=== PATIENT | female | born 1980 | race Caucasian/White ===

== ENCOUNTER 2018-01-28 13:37 | Outpatient (CLI) | payer OTHER ==
--- NOTE | 2018-01-28 16:55 | Mammography Report ---
Reason: NEW ONSET LEFT NIPPLE ITCHING Procedure Date: 01/28/2018 Accession Number: [id number] / [id number] Procedure: [place] - Diagnostic Dig Bilat CPT Code: FULL RESULT: EXAM: Diagnostic Dig Bilat, Breast Unilateral Limited DATE: 01/28/2018 3:54 PM CLINICAL HISTORY: 37-year-old female with history of late childbearing presents with several months of inversion of the left breast nipple and itching. TECHNIQUE: Bilateral CC and MLO views as well as a spot view of the left breast in MLO and CC projection were obtained. Focused grayscale ultrasound of the left breast was also performed. COMPARISON: None FINDINGS: The breasts demonstrate scattered fibroglandular densities bilaterally. No suspicious masses, calcifications or architectural distortion is identified in the right breast. Within the left breast, at the 3:00 position, 3.5 cm deep to the nipple is a focal architectural distortion. This requires biopsy. Focused ultrasound does not demonstrate a sonographic correlate and shows only normal breast tissue, biopsy to be performed stereotactically. IMPRESSION: Suspicious abnormality. RECOMMENDATION: Biopsy BIRADS CATEGORY 4 STANDARD QUALIFYING STATEMENTS: 1. This examination was not reviewed with the aid of Computer-Aided Detection (CAD). 2. A negative or benign imaging report should not delay biopsy if clinically suspicious findings are present. Consider surgical consultation if warrented. More than 5% of cancers are not identified by imaging. 3. Dense breasts may obscure an underlying neoplasm.
== END 2018-01-28 13:38 | disposition home or self-care (01) ==
LOC: DI 13:37
PROVIDERS: ATTEND Obstetrics & Gynecology
DX: R92.8 Other abnormal and inconclusive findings on diagnostic imaging of breast (principal); N64.59 Other signs and symptoms in breast
CPT/HCPCS: 76642; 77066

== ENCOUNTER 2018-03-19 10:40 | Outpatient (CLI) | payer OTHER ==
--- NOTE | 2018-03-19 15:37 | Mammography Report ---
Reason: PRE BIOPSY FILMS Procedure Date: 03/19/2018 Accession Number: [id number] / [id number] Procedure: [place] - Diag Special Views Dig LT CPT Code: FULL RESULT: EXAM: Diag Special Views Dig LT DATE: 03/19/2018 12:22 PM CLINICAL HISTORY: 45 month history of intermittent left-sided nipple retraction of undetermined etiology. Possible area of distortion in the lateral left breast referred for stereotactic breast biopsy. TECHNIQUE: Prior to attempted biopsy, additional diagnostic images of the left breast obtained with left CC and left MLO 2-D and 3-D mammography. Spot magnified views of the lateral left breast CC, 90 degree lateral. COMPARISON: 01/28/2018 FINDINGS: The breasts demonstrate scattered fibroglandular densities bilaterally. Left breast: There is mild central nipple retraction again noted. There are no suspicious masses, calcifications or areas of distortion. Previous finding of concern in the lateral left breast recommended for stereotactic breast biopsy is not apparent. No target for biopsy. IMPRESSION: Benign findings RECOMMENDATION: Clinical follow-up with primary care provider for symptoms of central nipple retraction without imaging correlate. Patient was advised to return prior to any recommended screening interval for increase in current symptoms or new symptoms/concerns. Otherwise follow-up bilateral mammogram in 1 year is recommended.. BI-RADS CATEGORY 2: Benign findings STANDARD QUALIFYING STATEMENTS: 1. This examination was not reviewed with the aid of Computer-Aided Detection (CAD). 2. A negative or benign imaging report should not preclude biopsy if clinically suspicious findings are present. 3. Dense breasts may obscure an underlying neoplasm. 4. This examination was reviewed with the aid of 3D breast imaging (tomosynthesis).
== END 2018-03-19 10:41 | disposition home or self-care (01) ==
LOC: DI 10:40
PROVIDERS: ATTEND Obstetrics & Gynecology
DX: N64.53 Retraction of nipple (principal); N64.4 Mastodynia

== ENCOUNTER 2019-09-22 14:18 | Emergency (ER) | payer OTHER ==
--- NOTE | 2019-09-22 15:20 | ED Physician Documentation ---
PD HPI DYSPNEA - Stated complaint Stated Complaint: TIGHTNESS IN CHEST, SOA - Chief complaint Chief Complaint: Resp - History obtained from History obtained from: Patient (For the last week and a half or so she has had paroxysm of wheezing and dry cough. Generally when she is outside. She has a history of exercise-induced asthma but this has not bothered her in a long time. She has some tight chest when it happens. No pedal edema or calf pain. No control. No recent travel. No history of DVT or PE. No hemoptysis.) Review of Systems Constitutional: denies: Fever, Chills Cardiac: denies: Palpitations, Pedal edema, Calf pain Respiratory: reports: Wheezing. denies: Hemoptysis PD PAST MEDICAL HISTORY - Present Medications Home Medications: Ambulatory Orders Medication Instructions Recorded Confirmed Ibuprofen [Motrin] 600 mg PO Q6H #30 tablet 11/28/15 Albuterol Sulf [Ventolin Hfa 1 - 2 puffs INH Q4HR PRN #1 inhaler 09/22/19 Inhaler] - Allergies Allergies/Adverse Reactions: Allergies Allergy/AdvReac Type Severity Reaction Status Date / Time hydrocodone Allergy Severe Itching Verified 09/22/19 14:26 - Social History Smoking Status: Never smoker PD ED PE NORMAL - Vitals Vital signs reviewed: Yes - General General: Alert and oriented X 3, No acute distress - HEENT HEENT: PERRL, EOMI - Neck Neck: Supple, no meningeal sign, No bony TTP - Cardiac Cardiac: RRR, No murmur - Respiratory Respiratory: No respiratory distress, Other (Mild expiratory wheezes, nonlabored, excellent air motion) - Abdomen Abdomen: Non tender - Neuro Neuro: Alert and oriented X 3, Normal speech - Psych Psych: Normal mood, Normal affect Results - Vitals Vitals: Vital Signs - 24 hr 09/22/19 14:26 Temperature 36.5 C Heart Rate 88 Respiratory 14 Rate Blood Pressure 140/72 H O2 Saturation 100 Oxygen O2 Source Room air - EKG (time done) 1422 Rate: Other (Twelve-lead EKG done at 1422 discloses normal sinus rhythm with a rate of 88, no ST T changes. No evidence of right heart strain.) PD MEDICAL DECISION MAKING - ED course ED course: This is a young woman with what appears to be allergic asthma, her chest x-ray and EKG are normal. She is prescribed an albuterol inhaler. I considered pulmonary embolism in this patient. Clinically the pretest probability of pulmonary embolism is less than 15%. I applied to the PERC rules as follows: The patient's age is under 50, heart rate less than 100, oxygen saturation greater than 94%, the patient does not have a history of DVT or PE. Patient has no recent trauma or surgery. The patient has no hemoptysis. The patient is not on exogenous estrogens. The patient does not have clinical signs suggesting DVT. As such the patient ruled out for pulmonary embolism by PERC criteria. Departure - Departure Disposition: Home, Self Care Clinical Impression: Allergic asthma Qualifiers: Asthma severity: mild Asthma persistence: intermittent Asthma complication type: uncomplicated Qualified Code(s): J45.20 - Mild intermittent asthma, uncomplicated Condition: Good Record reviewed to determine appropriate education?: Yes Instructions: Asthma Dc Prescriptions: Albuterol Sulf [Ventolin Hfa Inhaler] 1 - 2 puffs INH Q4HR PRN #1 inhaler PRN Reason: Shortness Of Air/Wheezing Comments: Call your doctor to arrange a follow-up appointment, make the next available appointment. In the interim, return anytime if worse or if new symptoms develop.
--- NOTE | 2019-09-22 15:23 | XRAY Report ---
Reason: SOA Procedure Date: 09/22/2019 Accession Number: [id number] / [id number] Procedure: XR - Chest 2 View X-Ray CPT Code: 86873 Final Report FULL RESULT: EXAM: CHEST RADIOGRAPHY EXAM DATE: 09/22/2019 02:53 PM. CLINICAL HISTORY: Shortness of breath. COMPARISON: None. TECHNIQUE: 2 views. FINDINGS: LUNGS: The lungs are clear. PLEURA: No significant pleural effusion. No clinically significant pneumothorax. MEDIASTINUM: The cardiomediastinal silhouette is unremarkable. BONES: No suspicious osseous lesions. IMPRESSION: No acute cardiopulmonary abnormality. RADIA
[2019-09-22 15:31] VITALS: BP 132/69
== END 2019-09-22 15:31 | disposition home or self-care (01) ==
LOC: ED 14:18
DX: J45.20 Mild intermittent asthma, uncomplicated (principal)
CPT/HCPCS: 71046; 99283

== ENCOUNTER 2020-12-01 14:01 | Outpatient (CLI) | payer OTHER ==
--- NOTE | 2020-12-02 12:13 | Mammography Report ---
BILATERAL DIGITAL SCREENING MAMMOGRAM 3D/2D: 12/01/2020 CLINICAL: Routine screening. Routine screening. Comparison is made to exams dated: 03/19/2018 mammogram and 01/28/2018 mammogram - [facility]. There are scattered fibroglandular elements in both breasts. No significant masses, calcifications, or other findings are seen in either breast. There has been no significant interval change. IMPRESSION: NEGATIVE There is no mammographic evidence of malignancy. A 1 year screening mammogram is recommended. This exam was interpreted at Station ID: [id number]. NOTE: For mammograms, a report in lay terms will be sent to the patient. Approximately 15% of breast malignancies will not be visualized mammographically. In the management of a palpable breast mass, a negative mammogram must not discourage biopsy of a clinically suspicious lesion. Electronically Signed By: Jona Mcfadden M.D. ddp/penrad:12/01/2020 14:48:21 ACR BI-RADS Category 1: Negative 3341F PARENCHYMAL PATTERN: (A) - The breast(s) demonstrate(s) scattered fibroglandular densities. BI-RADS CATEGORY: (1) - 1 RECOMMENDATION: (ANNUAL) - Recommend routine annual screening mammography. [id number] 1 year screening LATERALITY: (B)
== END 2020-12-01 14:02 | disposition home or self-care (01) ==
LOC: DI.S 14:01
PROVIDERS: ATTEND Internal Medicine
DX: Z12.31 Encounter for screening mammogram for malignant neoplasm of breast (principal)

== ENCOUNTER 2022-01-02 10:45 | Outpatient (CLI) | payer OTHER ==
--- NOTE | 2022-01-04 11:10 | Mammography Report ---
BILATERAL DIGITAL SCREENING MAMMOGRAM 3D/2D WITH EXAGGERATED CC: 01/02/2022 CLINICAL: Routine screening. Comparison is made to exams dated: 12/01/2020 mammogram, 03/19/2018 mammogram, and 01/28/2018 mammogra m - [facility]. Both breasts are almost entirely fatty (category a/<25% glandular tissue). No significant masses, calcifications, or other findings are seen in either breast. There has been no significant interval change. IMPRESSION: NEGATIVE There is no mammographic evidence of malignancy. A 1 year screening mammogram is recommended. Based on the Tyrer Cuzick model (a risk assessment model) the patients lifetime risk is 7.1% and her 10 year risk is 1.0%. According to the ACR, ACS, and NCCN guidelines, an annual breast MRI exam sandy g with mammogram is recommended if the patients lifetime risk is 20% or greater. This exam was interpreted at Station ID: [id number]. NOTE: For mammograms, a report in lay terms will be sent to the patient. Approximately 15% of breast malignancies will not be visualized mammographically. In the management of a palpable breast mass, a negative mammogram must not discourage biopsy of a clinically suspicious lesion. Electronically Signed By: Shruthi burns/yuliana:01/03/2022 15:19:05 ACR BI-RADS Category 1: Negative 3341F PARENCHYMAL PATTERN: (F) - The breast(s) demonstrate(s) diffuse fatty replacement. BI-RADS CATEGORY: (1) - 1 RECOMMENDATION: (ANNUAL) - Recommend routine annual screening mammography. [id number] 1 year screening LATERALITY: (B)
== END 2022-01-02 10:46 | disposition home or self-care (01) ==
LOC: DI.S 10:45 → MERGE 10:45 → DI.S 10:46
PROVIDERS: ATTEND Internal Medicine
DX: Z12.31 Encounter for screening mammogram for malignant neoplasm of breast (principal)

== ENCOUNTER 2022-02-13 08:00 | Outpatient (CLI) | payer OTHER | END 2022-02-13 23:59 | disposition home or self-care (01) | LOC: LAB 08:00 | PROVIDERS: ATTEND Physician Assistant | DX: J34.89 Other specified disorders of nose and nasal sinuses (principal); J02.9 Acute pharyngitis, unspecified | CPT/HCPCS: 87070 ==

== ENCOUNTER 2022-09-12 10:26 | Outpatient (CLI) | payer OTHER ==
--- NOTE | 2022-09-12 13:38 | Ultrasound Report ---
PROCEDURE: Pelvic w/Transvaginal INDICATIONS: ABN UTERINE BLEED TECHNIQUE: Real-time scanning was performed of the pelvic organs, with image documentation. Additional endovagi nal scanning was necessary due to incomplete visualization of the adnexal and endometrial structures by transabdominal scanning. COMPARISON: None. FINDINGS: Uterus: Uterus is anteverted and normal in size at 8.8 x 3.9 x 3.7 cm. The myometrium is homogeneou s. The endometrium measures 4 mm in combined thickness. IUD terminates within the mid to lower uter ine segment. Adjacent trace fluid surrounding the IUD. Ovaries: The right ovary measures 1.2 x 0.6 x 0.7 cm, with a calculated ovarian volume of 0.2 cc. T he left ovary measures 2.9 x 1.8 x 2.7 cm, with a calculated ovarian volume of 7 cc. The ovaries hav e a normal sonographic appearance. Less than 12 follicles can be seen in each ovary. No adnexal mas ses are seen. No cystic lesions measuring greater than 3 cm. Other: No pathologic free abdominal or pelvic fluid. IMPRESSION: IUD terminates within the mid to lower uterine segment, which is suboptimal placement. Recommend repo sitioning. Reviewed by: Juan Barajas on 09/12/2022 1:37 PM PDT Approved by: Juan Barajas on 09/12/2022 1:37 PM PDT Station ID: [id number]
== END 2022-09-12 10:27 | disposition home or self-care (01) ==
LOC: DI 10:26
PROVIDERS: ATTEND Obstetrics & Gynecology
DX: N93.9 Abnormal uterine and vaginal bleeding, unspecified (principal); Z97.5 Presence of (intrauterine) contraceptive device

== ENCOUNTER 2023-02-07 10:52 | Outpatient (CLI) | payer OTHER ==
--- NOTE | 2023-02-08 11:17 | Mammography Report ---
BILATERAL DIGITAL SCREENING MAMMOGRAM 3D/2D: 02/07/2023 CLINICAL: Routine screening. Comparison is made to exams dated: 01/02/2022 mammogram, 12/01/2020 mammogram, and 03/19/2018 mammogra m - [facility]. Both breasts are almost entirely fatty (category a/<25% glandular tissue). No significant masses, calcifications, or other findings are seen in either breast. There has been no significant interval change. IMPRESSION: NEGATIVE There is no mammographic evidence of malignancy. A 1 year screening mammogram is recommended. Based on the Tyrer Cuzick model (a risk assessment model) the patients lifetime risk is 7.1% and her 10 year risk is 1.0%. According to the ACR, ACS, and NCCN guidelines, an annual breast MRI exam sandy g with mammogram is recommended if the patients lifetime risk is 20% or greater. This exam was interpreted at Station ID: [id number]. NOTE: For mammograms, a report in lay terms will be sent to the patient. Approximately 15% of breast malignancies will not be visualized mammographically. In the management of a palpable breast mass, a negative mammogram must not discourage biopsy of a clinically suspicious lesion. Electronically Signed By: Jovani roy/yuliana:02/07/2023 14:44:12 letter sent: No_Letter ACR BI-RADS Category 1: Negative 3341F PARENCHYMAL PATTERN: (F) - The breast(s) demonstrate(s) diffuse fatty replacement. BI-RADS CATEGORY: (1) - 1 Mammogram [id number] 1 year screening LATERALITY: (B)
== END 2023-02-07 10:53 | disposition home or self-care (01) ==
LOC: DI.S 10:52
PROVIDERS: ATTEND Student in an Organized Health Care Education/Training Program
DX: Z12.31 Encounter for screening mammogram for malignant neoplasm of breast (principal)

== ENCOUNTER 2023-07-02 08:00 | Outpatient (CLI) | payer OTHER | END 2023-07-02 23:59 | disposition home or self-care (01) | LOC: LAB.S 08:00 | PROVIDERS: ATTEND Emergency Medicine | DX: J06.9 Acute upper respiratory infection, unspecified (principal) | CPT/HCPCS: 87070 ==